=== PATIENT | female | born 2000 | race Caucasian/White ===

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

== ENCOUNTER 2023-07-31 18:40 | Emergency (ER) | payer MEDICAID ==
[~2023-07-31] VITALS: Ht 177.8 cm; Wt 71.6 kg
--- NOTE | 2023-07-31 19:02 | ED EENT ---
History of Present Illness General Chief Complaint: Oral/Throat Problems Stated Complaint: SWOLLEN THROAT, HURTS TO TALK Source: patient Exam Limitations: no limitations History of Present Illness Date Seen by Provider: Jul 31, 2023 Time Seen by Provider: 18:58 Initial Comments Patient is a 23-year-old female who presents ED with sore throat difficulty talking. She states she has had a sore throat for about the past week. Gradually lost her voice worse today. She states she has pain with swallowing and noted some anterior neck swelling. She was seen at [facility] today was recommended stop her levothyroxine. Patient was diagnosed with hypothyroidism 1 week ago. She was started on levothyroxine. She stopped the medication a day. Ordered outpatient ultrasound of her thyroid. She did have lab work drawn today. She states she is having difficulty talking. Denies shortness of breath or wheezing. She denies any fever chills, vomiting, cough, headache but does report some diarrhea Allergies and Home Medications Allergies Coded Allergies: amoxicillin (Verified Allergy, Unknown, 07/31/23) clavulanic acid (Verified Allergy, Unknown, 07/31/23) piperacillin (Verified Allergy, Unknown, 07/31/23) tazobactam (Verified Allergy, Unknown, 07/31/23) Patient Home Medication List Home Medication List Reviewed: Yes Review of Systems Review of Systems Constitutional: No chills, No diaphoresis, No malaise, No weakness Eyes: Denies Drainage, Denies Decreased Acuity Ears: Denies Dizziness, Denies Pain Nose: denies clots, denies congestion Mouth: denies clots, denies loose teeth Throat: pain, swelling Respiratory: No cough, No dyspnea on exertion Cardiovascular: No chest pain, No edema Gastrointestinal: No abdominal pain, No constipation, No diarrhea Musculoskeletal: No back pain, No joint pain Skin: No change in color, No change in hair/nails All Other Systems Reviewed Negative Unless Noted: Yes Past Enrgfgy-Cvzsbt-Xvesrz Hx Patient Social History Tobacco Use?: No Use of E-Cig and/or Vaping dev: No Substance use?: No Alcohol Use?: No Past Medical History Surgery/Hospitalization HX: foot surgery Physical Exam Vital Signs Vital Signs - First Documented 07/31/23 18:55 Temp 37.3 Pulse 81 B/P (MAP) 150/97 (114) Pulse Ox 100 O2 Delivery Room Air Height, Weight, BMI Height: '" Weight: lbs. oz. kg; BMI Method: General Appearance: WD/WN, no apparent distress Eyes: bilateral eye normal inspection, bilateral eye PERRL, bilateral eye EOMI Ears: bilateral ear auricle normal, bilateral ear canal normal, bilateral ear TM normal Nose: normal inspection Mouth/Throat: other (Oropharynx patent without erythema, swelling, exudate. No stridor. Thyroid enlargement. ) Neck: other (No anterior neck redness bruising. Thyroid tenderness) Cardiovascular: regular rate, rhythm, no edema, no gallop, no JVD Respiratory: chest non-tender, lungs clear, normal breath sounds, no respiratory distress Gastrointestinal: normal bowel sounds, non tender, soft, no organomegaly Neurologic/Psychiatric: toilet attendant II-XII nml as tested, no motor/sensory deficits, alert Skin: normal color, warm/dry Progress/Results/Core Measures Results/Orders Lab Results My Orders Medications Given in ED Vital Signs/I&O Departure Communication (PCP) Reviewed previous ER visits, H&P and lab testing. History of anemia. 1 week ago had a toe infection started on terbinafine and found to have hypothyroidism. Patient was started on levothyroxine. Over the past week has not felt well. Lost 5 pounds. She reports some mild diarrhea sore throat. This became worse last night. She states she was scared that her throat was going to close. Was having difficulty swallowing. Woke up noted swelling to the anterior part of her neck. This became worse throughout the day. Had lab work drawn today at clinic at [facility] and is scheduled for an outpatient ultrasound. On exam she does have tenderness to the thyroid. Does appear to be enlarged. No stridor. Patient was afebrile and not tachycardic. Differential diagnosis strep throat, viral syndrome, thyroiditis, neck abscess. White blood count 3.3 lymphocytes 46. Chemistry potassium 3.4 otherwise grossly unremarkable. Did have a TSH of 7.75 normal free T4. Other etiologies would be subclinical hypothyroidism, Juan's. CT scan of the neck shows a rather marked enlarged thyroid gland. This could reflect mass or inflammation edema from perhaps thyroiditis. No mass effect on the esophagus or trachea. Rather prominent numerous bilateral cervical lymph nodes may be reactive in nature. Patient does not appear to be in a thyroid storm. Due to not having endocrinology here I did consult with endocrinology at [facility] Dr. Dennison resident at [facility]. Due to the findings she suggest transferring over to [facility] for an ultrasound and further evaluation by their endocrinology team. I did discuss patient with transfer line and Dr. Allen hospitalist did agree to accept patient. Does not want any other treatment at this time. . Do not have any ground transportation until Thursday. Do not have any local transportation for patient to . Waste of resources flying patient to . Patient does have family here. She is wanting to go by POV. Due to the limitations of getting patient to [facility] she was wanting to go by POV. Discussed my concerns with patient that her symptoms may potential worsen such as breathing. She acknowledges the risk. did agree for transfer by POV Impression Primary Impression: Thyroiditis Disposition: 02 XFER SHT-TRM HOSP Condition: Stable Transfer [facility] Medically Cleared for Xfer: Yes Transfer Reason: Exceeds level of care Time Spoke to Accepting Phy: 21:[address] Allen Transfer Time: 21:11 Transfer Facility: [facility] Method of Transfer: Private Vehicle Departure-Patient Inst. Referrals: NO,LOCAL PHYSICIAN (PCP/Family) Primary Care Physician JEFF QUIJANO Jul 31, 2023 19:02
[2023-07-31 19:11] LABS: BASOPHILS % (AUTO) 1 % (0-10); EOSINOPHILS % (AUTO) 1 % (0-10); HEMATOCRIT 39 % (35-52); HEMOGLOBIN 12.1 g/dL (11.5-16.0); LYMPHOCYTES # (AUTO) 1.5 10^3/uL (1.0-4.0); LYMPHOCYTES % (AUTO) 46 % (12-44); MEAN CORPUSCULAR HEMOGLOBIN 24 pg (25-34); MEAN CORPUSCULAR HGB CONC 31 g/dL (32-36); MEAN CORPUSCULAR VOLUME 76 fL (80-99); MEAN PLATELET VOLUME 9.7 fL (9.0-12.2); MONOCYTES # (AUTO) 0.3 10^3/uL (0.0-1.0); MONOCYTES % (AUTO) 8 % (0-12); NEUTROPHILS # (AUTO) 1.4 10^3/uL (1.8-7.8); NEUTROPHILS % (AUTO) 44 % (42-75); PLATELET COUNT 258 10^3/uL (130-400); WHITE BLOOD COUNT 3.3 10^3/uL (4.3-11.0)
[2023-07-31 19:27] LABS: ALBUMIN 4.7 GM/DL (3.2-4.5); CHLORIDE 107 MMOL/L (98-107); POTASSIUM 3.4 MMOL/L (3.6-5.0); SODIUM 138 MMOL/L (135-145)
[2023-07-31 19:29] LABS: GLUCOSE 93 MG/DL (70-105)
[2023-07-31 19:30] LABS: CARBON DIOXIDE 20 MMOL/L (21-32)
[2023-07-31 19:31] LABS: BILIRUBIN,TOTAL 0.5 MG/DL (0.1-1.0)
[2023-07-31 19:33] LABS: ALKALINE PHOSPHATASE 106 U/L (40-136)
[2023-07-31 19:36] LABS: ALANINE AMINOTRANSFERASE 14 U/L (0-55); LIPASE 23 U/L (8-78)
[2023-07-31 20:05] LABS: BUN/CREATININE RATIO 7; CREATININE SERUM 0.87 MG/DL (0.60-1.30); GFR ESTIMATED 96
[2023-07-31] MEDS ORDERED: HOLD METFORMIN - RECEIVED CONTRAST 20 ML VIAL IV SCH (20:15)
[2023-07-31] MEDS ORDERED: IOHEXOL 350 MG/ML 100 ML (OMNIPAQUE 350) VIAL IV ONE (20:15)
[2023-07-31] MEDS ORDERED: NS 100 ML (IVPB) BAG IV ONE (20:15)
--- NOTE | 2023-07-31 20:22 | Diagnostic Imaging Report ---
PROCEDURE: CT neck soft tissue with contrast. TECHNIQUE: Multiple contiguous axial images were obtained through the neck after the administration of contrast. Auto Exposure Controls were utilized during the CT exam to meet ALARA standards for radiation dose reduction. INDICATION: 23-year-old female, sore throat, difficulty swallowing, symptoms starting yesterday. New diagnosis hyperthyroidism with medication initiation. CORRELATION STUDY: None. FINDINGS: The globes are symmetric. Paranasal sinuses and mastoid air cells are clear. Nasopharynx unremarkable. There is suggested mild soft tissue fullness of the adenoids and left tonsillar fossa without definitive inflammation. No fluid collection or abscess. Oropharynx unremarkable. The vallecula and epiglottis unremarkable. Vocal cords are closed. Subglottic airway unremarkable. The thyroid gland is rather significantly enlarged and lobulated. Right lobe approximately 3.4 x 2.4 x 6.6 cm. Left lobe approximately a 2.8 x 2.8 x 5.9 cm. This demonstrates no significant mass effect upon the trachea and/or esophagus there are rather prominent, enlarged bilateral cervical lymph nodes. Submandibular and parotid glands unremarkable. Cervical spinal alignment unremarkable. Asymmetric a disc space narrowing and degenerative change at T1-T2. Lung apices unremarkable. IMPRESSION: 1. Rather marked enlarged thyroid gland. Could reflect mass or inflammation/edema from perhaps thyroiditis. 2. Rather prominent number of bilateral cervical lymph nodes may be reactive in nature. Dictated by: Dictated on workstation # [id number]
[2023-07-31 21:36] VITALS: BP 135/91
== END 2023-07-31 21:44 | disposition short-term general hospital (02) ==
LOC: EDUNIT# 18:40 → ER 18:45
DX: E06.9 Thyroiditis, unspecified (principal); R19.7 Diarrhea, unspecified; E03.9 Hypothyroidism, unspecified; Z79.890 Hormone replacement therapy
CPT/HCPCS: 36415; 70491; 80053; 83690; 84439; 84443; 84481; 84703; 85025; 86141; 86308; 87430; 87636